=== PATIENT | male | born 1980 | race Caucasian/White ===

== ENCOUNTER 2017-04-14 16:31 | Emergency (ER) | payer OTHER ==
[~2017-04-14] VITALS: Wt 95.3 kg
[~2017-04-14 16:31] MED LIST: LISINOPRIL/HCTZ1 TA3 PO; LOSARTAN POTASS25 M1 PO; NORVASC10 MG PO; PERCOCET 500 MG1 TAB PO; ROBAXIN750 MG PO
[2017-04-14] MEDS ORDERED: MEDROL DOSEPAK4 MG PO (18:52)
[2017-04-14] MEDS ORDERED: CYCLOBENZAPRINE5 M3 PO (18:52)
== END 2017-04-14 19:13 | disposition home or self-care (01) ==
LOC: ED 16:31
DX: M54.5 Low back pain (principal); R51 Headache; R42 Dizziness and giddiness; H53.9 Unspecified visual disturbance; Z79.899 Other long term (current) drug therapy

== ENCOUNTER → 2018-06-17 | Outpatient (CLI) | payer OTHER ==
[~2018-06-17] MED LIST changes: +CYCLOBENZAPRINE5 M3 PO; +MEDROL DOSEPAK4 MG PO
== END | disposition home or self-care (01) ==
LOC: MRI 13:08
DX: G44.209 Tension-type headache, unspecified, not intractable (principal); I10 Essential (primary) hypertension; Z82.49 Family history of ischemic heart disease and other diseases of the circulatory system

== ENCOUNTER → 2018-07-02 | Outpatient (CLI) | payer OTHER | END | disposition home or self-care (01) | LOC: CARD 07-01 09:30 | DX: I51.7 Cardiomegaly (principal); R51 Headache ==

== ENCOUNTER 2018-08-17 08:08 | Emergency (ER) | payer OTHER ==
[~2018-08-17] VITALS: Ht 175.2 cm; Wt 86.2 kg
[2018-08-17] MEDS ORDERED: CARVEDILOL3.125 MG PO (08:19)
[2018-08-17] MEDS ORDERED: CYCLOBENZAPRINE5 M3 PO (10:20)
== END 2018-08-17 10:26 | disposition home or self-care (01) ==
LOC: ED 08:08
DX: M54.5 Low back pain (principal); Z79.899 Other long term (current) drug therapy

== ENCOUNTER → 2020-08-28 | Outpatient (CLI) | payer OTHER ==
[~2020-08-28] MED LIST changes: +CARVEDILOL3.125 MG PO
== END | disposition home or self-care (01) ==
LOC: COVID19 13:48
PROVIDERS: ATTEND Family Medicine
DX: U07.1 COVID-19 (principal)